=== PATIENT | female | born 1965 | race Two or more races ===

== ENCOUNTER → 2024-08-23 | Outpatient (CLI) | payer MEDICAID, SELFPAY ==
--- NOTE | 2024-08-23 10:30 | XR_ITS ---
Examination: Diagnostic digital mammography, unilateral, right Computer aided detection 3-D breast Tomosynthesis, unilateral Date and time of exam: 04/25/2024 1006 hours INDICATIONS: Mammogram 12/06/2023 grouped microcalcifications 12:00 position right breast Technique: Nonmagnified MLO, CC views of the right breast have been obtained, reconstructed from 3-D Tomosynthesis images. R2 computer aided detection program utilized for evaluation of suspicious masses and/or abnormal calcifications. 3-D Tomosynthesis images obtained. Findings: Scattered areas of bilateral granular density Stable right breast calcifications Impression: BI-RADS category 2: Benign findings Return to yearly follow-up mammography
== END | disposition home or self-care (01) ==
PROVIDERS: Referring Provider Family Medicine; Visit Provider Family Medicine
DX: R92.1 Mammographic calcification found on diagnostic imaging of breast (principal); R92.30 Dense breasts, unspecified
CPT/HCPCS: 77061; 77065; G0279